=== PATIENT | female | born 1965 | race Caucasian/White ===

== ENCOUNTER 2024-05-15 10:30 | Outpatient (RCR) | payer BC, SELFPAY ==
--- NOTE | 2024-02-23 12:58 | OT.OPPOC ---
Physical, Occupational & Speech Therapy At [facility] Chandlertiffani gregoryJulio CAura Zahira [id number] 1965 Visit Care Team Role Provider Type Lesley Garner PA-C Attending Provider Non-Staff Referring Provider Address: [facility] [address], [place], [address] Occupational Therapy Plan of Care OT Outpatient Adult Evaluation Start: 02/23/24 12:16 Freq: Status: Active Protocol: Document 02/23/24 12:17 LISSA (Rec: 02/23/24 12:42 [email or web address] [id number]) General Information - Adult Visit Information Visit Number 1 Plan of Care Dates 02/23/24 - 05/03/24 Insurance Information [facility] Session Time Visit Start Date 02/23/24 Visit Start Time 11:15 Visit Stop Time 12:00 Setting Treatment Setting Outpatient Care Visit Type Note Type Initial Evaluation Referral Referring Physician Lesley Garner Reason for Referral sprain of interphalangeal joint of L middle finger Identification Identification Confirmed Yes Patient Questionnaires Quick Dash- Upper Extremity Quick Dash UE Score 22.72 Quick Dash UE Impairment 20 to 39% Impaired (Score 20- 39) Goals Objective Measurements Objective Measurements L 3rd digit: MP ext +10 A, MP flex 80 A (90P), PIP ext - 28 A (-20P), PIP flex 78 A (86P), DIP ext +3 A, DIP flex 54 A ( 54P) circumfrential measurement: distal to MP L 3rd digit 6.5cm , 1/[address] way between MP and PIP 6 .9cm, PIP 7 cm, 1/2 way between PIP and DIP 6cm data management engineer strength: R 72#, L 41# Treatment Treatment retrograde massage performed to thrid digits for edema mgmt followed by placement of coban wrap. Assisted Goals Sheet Turner Goals 1. Pt will tolerate PROM L 3rd digit to WFL for flexion and extension for improved functional use. 2. Pt will demonstrate improved MP extension of at least -5 or better for improved functional use. 3. Pt will increase functional data management engineer by at least 10#. 4. Pt will be I with edema reduction technqiue HEP. 5. Pt will report no pain in L hand on waking. Assessment/Plan Assessment Patient Response Good Rehabilitation Potential Good Impairments Identified Body Mechanics,Flexibility, Functional Activities,Motor Function,Pain,Weakness,Range of Motion,Recreational Activities,Meaningful Activities,Stiffness,Swelling Treatment Assessment Pt referred to skilled OT services to address sprain of interphalangeal joint of L middle finger. Pt reports the injuring occured in mid-November. ? I was walking my dog and I bent down to pick something up . I was loosely holding the leash and she ran after another dog. The leash wrapped around my finger and she pulled.? ?It does hurt, but it ?s more of a huge inconvenience?. Pt reports pain at its worse at 3/10. Pt reports the most pain when she wakes up in the morning and she stretches opening her hand. She also has pain when she bumps it. Pt reports that pain is occasionally a burning pain. She is taking Aleve 2x/day for approximately 2 weeks. Pt denies any significant Pmhx . 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 She reports that he L hand does not limit any of the work she performs. However, when working with her dog, pt complains that her hand gets stuck in the treat bag. She also enjoys gardening and reports that she has continued to perform gardening tasks. She reports an increase in her swelling when she removes her gardening gloves verses when she initially donned them. Pt is R hand dominant. See objective section of eval for measurements. Pt with mild complaints of tenderness on palpation around her PIP joint . Pt report that the level of tenderness varies. OT notes that pt keeps left hand in stiff guarded position and does not use it unless asked. Pt will benefit from skilled OT services for improved functional use of L hand including improved ROM, strength, dexterity and reduction of edema. Pt will benefit from education on edema mgmt. Home Exercise Program pt issued HEP to include contrast bath, retrograde massage, and PROM PIP Reviewed with Patient Home Exercise Program Patient Understanding Excellent Plan Length of treatment (weeks) 10 Plan of Care Start Date 02/23/24 Plan of Care End Date 05/03/24 Comment 1-2x/wk Treatment Duration 45 Minutes Therapeutic Contents Client Education,Functional Activities,Home Exercise Program,Joint Protection, Manual Therapy,Education, Neuromuscular Re-Education, Self-Care,Stretching/ Flexibility Activities, Therapeutic Activities, Therapeutic Exercises, Modalities Modalities As Needed Types of Modalities Cyrotherapy Additional Types of Modalities PB/MHP/CP Patient Instruction Home Exercise Program,Plan of Care,Questions/Concerns Functional Wrist/Hand Scan Hand Side Sensory Assessment Sensory Profile2 Electronically Signed by: Veronika Sauer OT 02/23/24 [id number] If you are in agreement with this Plan of Care, please return a signed and dated copy. I have reviewed this Plan of Care and certify that the skilled therapy services above are required to meet the patient?s needs. Physician Signature Date Printed Name and Credentials Clinical Instructor Signature Printed Name and Credentials
--- NOTE | 2024-02-28 12:28 | OT.OP.TRT ---
Visit Care Team Role Provider Type Lesley Garner PA-C Attending Provider Non-Staff Referring Provider Specialty: Medical Address: [facility] [address], [place], [address] Email: Occupational Therapy Treatment Note OT Outpatient Treatment Note - Adult Start: 02/23/24 12:16 Freq: Status: Active Protocol: Document 02/28/24 10:30 LISSA (Rec: 02/28/24 09:28 LISSA [id number]) OT Outpatient Adult Treatment Note Session Time Visit Start Date 02/28/24 Visit Start Time 10:30 Visit Stop Time 11:15 Visit Information Visit Number Plan of Care Dates 02/23/24 - 05/03/24 [facility] Setting Treatment Setting Outpatient Care Visit Type Note Type Treatment Note - Subjective Identification Type Name Identification Reconciled With Medical Record Chief Complaint(s) Loss of Motion/Stiffness - Objective Objective Measurements Pt reports that she tried the coban wrap with activity, but says she has stopped doing it because her finger feels to stiff following. I feel like the swelling is a little better. Pt reports she has been performing contrast bath I feel like it is helping Pt denies pain during treatment session. After tx pt states I feel like it is moving so much more than before! Leach Cell Operator Goals 1. Pt will tolerate PROM L 3rd digit to WFL for flexion and extension for improved functional use. 2. Pt will demonstrate improved MP extension of at least -5 or better for improved functional use. 3. Pt will increase functional bartenders by at least 10#. 4. Pt will be I with edema reduction technqiue HEP. 5. Pt will report no pain in L hand on waking. - Treatment 2 Descriptor PROM: L 3rd digit MP/PIP/DIP flexion and extension to tolerance as well as composite flexion, extended holds as tolerated 1 Descriptor PB to L hand for 10 minutes to increase extensibility prior to manual therapy and PROM Exercises 1 Descriptor AROM L digits (flexion, ext, abd, add) with elbow on table and hand elevated Manual Therapy Manual Therapy soft tissue and fascial mobilization 3rd PIP including circumferential mobilization. joint mobilization grade III oscillation for PIP flexion and extension retrograde massage L 3rd digit and palm - Assessment Patient Response to Treatment Good Rehabilitation Potential Good Impairments Identified Body Mechanics,Flexibility, Pain,Weakness,Range of Motion, Recreational Activities, Meaningful Activities, Stiffness,Swelling Progress Towards Goals Excellent Progress Assessment of Overall Progress Improving Assessment of Improvement Pt tolerated tx well. OT educated pt on performing soft tissue and fascial mobilization as part of her HEP. Pt verbalizes understanding. OT re-educated pt on purpose of retrograde massage (pt stated she did not think it was helping) and performed for pt. Pt verbalizes understanding of this as well. Pt tolerated joint mobilization and PROM well. Pt with decreased guarding postures following treatment session. Continue skilled OT services per established POC. Reviewed with Patient/Caregiver Goals,Progress Being Made,Home Exercise Program Patient/Caregiver Understanding Excellent - Plan Therapy Recommendations Continue with Current Program Amount of Therapy Recommended 2-3 Months Comment 1-2x/wk Therapeutic Contents Active Range of Motion,Client Education,Functional Activities,Home Exercise Program,Joint Protection, Manual Therapy,Education, Neuromuscular Re-Education, Self-Care,Stretching/ Flexibility Activities, Therapeutic Activities, Therapeutic Exercises, Modalities Modalities As Needed Types of Modalities Contrast Bath,Cyrotherapy Additional Types of Modalities PB/MHP/CP
--- NOTE | 2024-03-01 12:12 | OT.OP.TRT ---
Visit Care Team Role Provider Type Lesley Garner PA-C Attending Provider Non-Staff Referring Provider Specialty: Medical Address: [facility] [address], [place], [address] Email: Occupational Therapy Treatment Note OT Outpatient Treatment Note - Adult Start: 02/23/24 12:16 Freq: Status: Active Protocol: Document 03/01/24 11:18 LISSA (Rec: 03/01/24 10:10 LISSA [id number]) OT Outpatient Adult Treatment Note Session Time Visit Start Date 03/01/24 Visit Start Time 11:18 Visit Stop Time 12:00 Visit Information Visit Number Plan of Care Dates 02/23/24 - 05/03/24 [facility] Setting Outpatient Care Visit Type Note Type Treatment Note - Subjective Identification Type Name Identification Reconciled With Medical Record Chief Complaint(s) Loss of Motion/Stiffness - Objective Objective Measurements Pt reports My hand is a little more stiff today. Usually it spends some time in hot water in the morning. Pt reports Last night when I took my dog for a walk, I got out of the car and was just super aware of my hand. Pt did not do the contrast bath yesterday. Business Area Director Goals 1. Pt will tolerate PROM L 3rd digit to WFL for flexion and extension for improved functional use. 2. Pt will demonstrate improved MP extension of at least -5 or better for improved functional use. 3. Pt will increase functional installation tech by at least 10#. 4. Pt will be I with edema reduction technique HEP. 5. Pt will report no pain in L hand on waking. - Treatment 2 Descriptor PROM: L 3rd digit MP/PIP/DIP flexion and extension to tolerance as well as composite flexion, extended holds as tolerated 1 Descriptor PB to L hand for 10 minutes to increase extensibility prior to manual therapy and PROM Exercises 2 Descriptor tendon glide x15 1 Descriptor AROM L digits (flexion, ext, abd, add) with elbow on table and hand elevated Manual Therapy Manual Therapy soft tissue and fascial mobilization 3rd PIP including circumfrential mobilization. joint mobilization grade III oscillation for PIP flexion and extension retrograde massage L 3rd digit and palm - Assessment Patient Response to Treatment Good Rehabilitation Potential Good Impairments Identified Body Mechanics,Flexibility, Pain,Weakness,Range of Motion, Recreational Activities, Meaningful Activities, Stiffness,Swelling Progress Towards Goals Excellent Progress Assessment of Overall Progress Improving Assessment of Improvement Pt tolerated tx well. Pt has not performed her HEP since last tx due to being busy with family member. OT emphasizes importance of each of the exercises on HEP. Pt verbalizes understanding. Pt requires min vcs to perform tendon glide correctly. Pt tolerates near functional limits for 3rd digift flexion and extension by OT. Continue skilled OT services per established POC. Reviewed with Patient/Caregiver Goals,Progress Being Made,Home Exercise Program Patient/Caregiver Understanding Excellent - Plan Therapy Recommendations Continue with Current Program Amount of Therapy Recommended 2-3 Months Comment 1-2x/wk Therapeutic Contents Active Range of Motion,Client Education,Functional Activities,Home Exercise Program,Joint Protection, Manual Therapy,Education, Neuromuscular Re-Education, Self-Care,Stretching/ Flexibility Activities, Therapeutic Activities, Therapeutic Exercises, Modalities Modalities As Needed Types of Modalities Contrast Bath,Cyrotherapy Additional Types of Modalities PB/MHP/CP
--- NOTE | 2024-03-06 08:17 | OT.OP.TRT ---
Visit Care Team Role Provider Type Lesley Garner PA-C Attending Provider Non-Staff Referring Provider Specialty: Medical Address: [facility] [address], [place], [address] Email: Occupational Therapy Treatment Note OT Outpatient Treatment Note - Adult Start: 02/23/24 12:16 Freq: Status: Active Protocol: Document 03/06/24 07:31 LISSA (Rec: 03/06/24 07:29 LISSA [id number]) OT Outpatient Adult Treatment Note Session Time Visit Start Date 03/06/24 Visit Start Time 07:31 Visit Stop Time 08:15 Visit Information Visit Number Plan of Care Dates 02/23/24 - 05/03/24 [facility] Outpatient Care Visit Type Note Type Treatment Note - Subjective Identification Type Name Identification Reconciled With Medical Record Observations My hand has been more stiff lately, especially first thing in the morning I have been keeping my hand above my heart and moving my hand. I'm still doing the contrast bath and some massage. After therapy pt states It feels better than it did when I woke up Chief Complaint(s) Loss of Motion/Stiffness - Objective Tube Drawer Goals 1. Pt will tolerate PROM L 3rd digit to WFL for flexion and extension for improved functional use. 2. Pt will demonstrate improved MP extension of at least -5 or better for improved functional use. 3. Pt will increase functional child protection specialist by at least 10#. 4. Pt will be I with edema reduction technqiue HEP. MET 03/06/24 5. Pt will report no pain in L hand on waking. - Treatment 2 Descriptor PROM: L 3rd digit MP/PIP/DIP flexion and extension to tolerance as well as composite flexion, extended holds as tolerated 1 Descriptor PB to L hand for 10 minutes to increase extensibility prior to manual therapy and PROM Exercises 4 Descriptor Isometric PIP ext x10 3 Descriptor towel: index finger flexion for towel gather and extension for flattening towel x 10 2 Descriptor tendon glide x15 1 Descriptor AROM L digits (flexion, ext, abd, add) with elbow on table and hand elevated Isolated PIP flexion and extension x20 Manual Therapy Manual Therapy soft tissue and fascial mobilization 3rd PIP including circumfrential mobilization. joint mobilization grade III oscilation for PIP flexion and extension retrograde massage L 3rd digit and palm - Assessment Patient Response to Treatment Good Rehabilitation Potential Good Impairments Identified Body Mechanics,Flexibility, Pain,Weakness,Range of Motion, Recreational Activities, Meaningful Activities, Stiffness,Swelling Progress Towards Goals Excellent Progress Assessment of Overall Progress Improving Assessment of Improvement OT recommends pt wearing a compression glove especially at night but also during day as tolerated to assist with swelling. Pt tolerated tx well. Pt reports that she has been performing her HEP. Pt continues to require min vcs to perform tendon glide correctly. Pt tolerates near fucntional limits for 3rd digift flexion and extension by OT. Pt hs met goal #4. Continue skilled OT services per established POC. Reviewed with Patient/Caregiver Goals,Progress Being Made,Home Exercise Program Patient/Caregiver Understanding Excellent - Plan Therapy Recommendations Continue with Current Program Amount of Therapy Recommended 2-3 Months Comment 1-2x/wk Therapeutic Contents Active Range of Motion,Client Education,Functional Activities,Home Exercise Program,Joint Protection, Manual Therapy,Education, Neuromuscular Re-Education, Self-Care,Stretching/ Flexibility Activities, Therapeutic Activities, Therapeutic Exercises, Modalities Modalities As Needed Types of Modalities Contrast Bath,Cyrotherapy Additional Types of Modalities PB/MHP/CP
--- NOTE | 2024-03-13 12:27 | OT.OP.TRT ---
Visit Care Team Role Provider Type Lesley Garner PA-C Attending Provider Non-Staff Referring Provider Specialty: Medical Address: [facility] [address], [place], [address] Email: Occupational Therapy Treatment Note OT Outpatient Treatment Note - Adult Start: 02/23/24 12:16 Freq: Status: Active Protocol: Document 03/13/24 10:35 LISSA (Rec: 03/13/24 10:29 LISSA [id number]) OT Outpatient Adult Treatment Note Session Time Visit Start Date 03/13/24 Visit Start Time 10:35 Visit Stop Time 11:15 Visit Information Visit Number Plan of Care Dates 02/23/24 - 05/03/24 Insurance Information [facility] Setting Treatment Setting Outpatient Care Visit Type Note Type Treatment Note - Subjective Identification Type Name Identification Reconciled With Medical Record Observations Pt has had a lot of things going on at home. Pt reports that she has been doing the exercises at home I think they are helping. Pt reports she bought a compression glove and it has been helping with the stiffness, but I don 't feel like it's helping with the stiffness. Pt is wearing her compression glove at night. Pt continues to c/o pain on waking. Chief Complaint(s) Loss of Motion/Stiffness - Objective Objective Measurements L 3rd digit:PIP ext - 10A, PIP flex 84 A, DIP ext +3 A, circumfrential measurement: distal to MP L 3rd digit 6.3cm , 1/2 way between MP and PIP 6 .6cm, PIP 6.8 cm, 1/2 way between PIP and DIP 5.7 cm Jail Goals 1. Pt will tolerate PROM L 3rd digit to WFL for flexion and extension for improved functional use. MET 03/13/24 2. Pt will demonstrate improved MP extension of at least -5 or better for improved functional use. 3. Pt will increase functional brick chimney builder by at least 10#. 4. Pt will be I with edema reduction technqiue HEP. MET 03/06/24 5. Pt will report no pain in L hand on waking. - Treatment 2 Descriptor PROM: L 3rd digit MP/PIP/DIP flexion and extension to tolerance as well as composite flexion, extended holds as tolerated 1 Descriptor PB to L hand for 10 minutes to increase extensibility prior to manual therapy and PROM Exercises 5 Descriptor resistive digit clinical quality rn: green x15 4 Descriptor Digit blocking: PIP and DIP flexion and extension with 3 second holds at end range x10 each 3 Descriptor towel: index finger flexion for towel gather and extension for flattening towel x 15 2 Descriptor tendon glide x15 1 Descriptor AROM L digits (flexion, ext, abd, add) with elbow on table and hand elevated Isolated PIP flexion and extension x20 Manual Therapy Manual Therapy soft tissue and fascial mobilization 3rd PIP including circumfrential mobilization. joint mobilization grade III oscilation for PIP flexion and extension retrograde massage L 3rd digit and palm - Assessment Patient Response to Treatment Good Rehabilitation Potential Good Impairments Identified Body Mechanics,Flexibility, Pain,Weakness,Range of Motion, Recreational Activities, Meaningful Activities, Stiffness,Swelling Progress Towards Goals Excellent Progress Assessment of Overall Progress Improving Assessment of Improvement Pt demonstrates decreased edema and increased AROM. See notes above for specific measurements. Pt was issued tendon glides to add into her HEP routine. Pt demonstrates them with min vcs. Pt has met goal #1 and makes progress toward #2. Pt tolerated addition of increased exercises well. Pt needs occasional rbs due to complaints of being tired. Continue skilled OT services per established POC. Reviewed with Patient/Caregiver Goals,Progress Being Made,Home Exercise Program Patient/Caregiver Understanding Excellent - Plan Therapy Recommendations Continue with Current Program Amount of Therapy Recommended 2-3 Months Comment 1-2x/wk Therapeutic Contents Active Range of Motion,Client Education,Functional Activities,Home Exercise Program,Joint Protection, Manual Therapy,Education, Neuromuscular Re-Education, Self-Care,Stretching/ Flexibility Activities, Therapeutic Activities, Therapeutic Exercises, Modalities Modalities As Needed Types of Modalities Contrast Bath,Cyrotherapy Additional Types of Modalities PB/MHP/CP
--- NOTE | 2024-04-21 09:49 | OT.OP.TRT ---
Visit Care Team Role Provider Type Lesley Garner PA-C Attending Provider Non-Staff Referring Provider Specialty: Medical Address: [facility] [address], [place], [address] Email: Occupational Therapy Treatment Note OT Outpatient Treatment Note - Adult Start: 02/23/24 12:16 Freq: Status: Active Protocol: Document 04/21/24 09:06 LISSA (Rec: 04/21/24 09:14 LISSA [id number]) OT Outpatient Adult Treatment Note Session Time Visit Start Date 04/21/24 Visit Start Time 09:00 Visit Stop Time 09:45 Visit Information Visit Number Plan of Care Dates 02/23/24 - 05/03/24 Insurance Information [facility] Setting Treatment Setting Outpatient Care Visit Type Note Type Treatment Note - Subjective Identification Type Name Identification Reconciled With Medical Record Observations Sometimes it's super tender, I hit it on the side of the car and it about brought tears to my eyes. Pt reports wearing compression glove every other night. Pt reports Getting it in warm wet water is when it feels the best. It still feels really tight when I want to make a fist. Pt has been driving more lately (8 hours plus) and reports her L 3rd digit becomes very stiff. Pt reports that she her hand is stiff when she wakes and on the verge of painful. Chief Complaint(s) Loss of Motion/Stiffness - Objective Objective Measurements L 3rd digit:PIP ext - 10A (-5P ), PIP flex 89 A, DIP ext +3 A , circumfrential measurement: distal to MP L 3rd digit 6.5 cm, 1/2 way between MP and PIP 6.6cm, PIP 7 cm, 1/2 way between PIP and DIP 5.7 cm Group Home Goals 1. Pt will tolerate PROM L 3rd digit to WFL for flexion and extension for improved functional use. MET 03/13/24 2. Pt will demonstrate improved MP extension of at least -5 or better for improved functional use. 3. Pt will increase functional table keeper by at least 10#. 4. Pt will be I with edema reduction technqiue HEP. MET 03/06/24 5. Pt will report no pain in L hand on waking. - Treatment 2 Descriptor PROM: L 3rd digit MP/PIP/DIP flexion and extension to tolerance as well as composite flexion, extended holds as tolerated Exercises 4 Descriptor Digit blocking: PIP and DIP flexion and extension with 3 second holds at end range x10 each 3 Descriptor towel: index finger flexion for towel gather and extension for flattening towel x 2 minutes 2 Descriptor tendon glide x15 Manual Therapy Manual Therapy soft tissue and fascial mobilization 3rd PIP including circumfrential mobilization. joint mobilization grade III oscilation for PIP flexion and extension - Assessment Patient Response to Treatment Good Rehabilitation Potential Good Impairments Identified Body Mechanics,Flexibility, Pain,Weakness,Range of Motion, Recreational Activities, Meaningful Activities, Stiffness,Swelling Progress Towards Goals Excellent Progress Assessment of Overall Progress Improving Assessment of Improvement Pt last treated on 03/13 due to medical concerns of therapist . Pt's measurements are documented above in objective section. Pt demonstrates some improvement in PIP flexion. Pt tolerates PROM and joint mobilization well. Pt reports feeling stiff at end of tx but denies any pain. Pt will continue to benefit from skilled OT services to address ROM, strength, and funcitonal use of L hand. Cont per established POC. Reviewed with Patient/Caregiver Goals,Progress Being Made,Home Exercise Program Patient/Caregiver Understanding Excellent - Plan Therapy Recommendations Continue with Current Program Amount of Therapy Recommended 2-3 Months Comment 1-2x/wk Therapeutic Contents Active Range of Motion,Client Education,Functional Activities,Home Exercise Program,Joint Protection, Manual Therapy,Education, Neuromuscular Re-Education, Self-Care,Stretching/ Flexibility Activities, Therapeutic Activities, Therapeutic Exercises, Modalities Modalities As Needed Types of Modalities Contrast Bath,Cyrotherapy Additional Types of Modalities PB/MHP/CP
--- NOTE | 2024-04-24 10:51 | OT.OP.TRT ---
Visit Care Team Role Provider Type Lesley Garner PA-C Attending Provider Non-Staff Referring Provider Specialty: Medical Address: [facility] [address], [place], [address] Email: Occupational Therapy Treatment Note OT Outpatient Treatment Note - Adult Start: 02/23/24 12:16 Freq: Status: Active Protocol: Document 04/24/24 08:18 LISSA (Rec: 04/24/24 08:22 LISSA [id number]) OT Outpatient Adult Treatment Note Session Time Visit Start Date 04/24/24 Visit Start Time 08:18 Visit Stop Time 09:00 Visit Information Visit Number Plan of Care Dates 02/23/24 - 05/03/24 Insurance Information [employer] Setting Treatment Setting Outpatient Care Visit Type Note Type Treatment Note - Subjective Identification Type Name Identification Reconciled With Medical Record Observations It's about the same. Pt reports her finger was stiff when she woke this morning and that driving to therapy made her finger feel more stiff. I think my biggest issue with it right now is that it is clumsy and in the way. It feels like it should be useful , but it's just in the way. After tx pt states It feels so much better. It's not even stiff! It's tired but it's not stiff! Chief Complaint(s) Loss of Motion/Stiffness - Objective Property Master Goals 1. Pt will tolerate PROM L 3rd digit to WFL for flexion and extension for improved functional use. MET 03/13/24 2. Pt will demonstrate improved MP extension of at least -5 or better for improved functional use. 3. Pt will increase functional manager electronic by at least 10#. 4. Pt will be I with edema reduction technqiue HEP. MET 03/06/24 5. Pt will report no pain in L hand on waking. - Treatment 2 Descriptor PROM: L 3rd digit MP/PIP/DIP flexion and extension to tolerance as well as composite flexion, extended holds as tolerated Exercises 6 Descriptor blue foam full fist followed by full extension x 20 5 Descriptor resistive digit sectionizer: green 10x2 4 Descriptor Digit blocking: PIP and DIP flexion and extension with 3 second holds at end range x15 each 3 Descriptor towel: index finger flexion for towel gather and extension for flattening towel x 2 minutes 2 Descriptor tendon glide x15 Manual Therapy Manual Therapy joint mobilization grade III oscilation for PIP flexion and extension - Assessment Patient Response to Treatment Good Rehabilitation Potential Good Impairments Identified Body Mechanics,Flexibility, Pain,Weakness,Range of Motion, Recreational Activities, Meaningful Activities, Stiffness,Swelling Progress Towards Goals Excellent Progress Assessment of Overall Progress Improving Assessment of Improvement OT added composite fisting with blue foam today due to pts c/o middle finger being in the way. OT issued for home use to encourage fingers to work as a functional unit. Pt requires intermittent rbs due to muscle fatigue with strengthening exercises. OT encourages pt to hold stretches for longer when performing at home. Pt tolerated tx well and reported having no stiffness at the end of her tx. Pt tolerated increased holds with PROM today. Cont per established POC. Reviewed with Patient/Caregiver Goals,Progress Being Made,Home Exercise Program Patient/Caregiver Understanding Excellent - Plan Therapy Recommendations Continue with Current Program Amount of Therapy Recommended 2-3 Months Comment 1-2x/wk Therapeutic Contents Active Range of Motion,Client Education,Functional Activities,Home Exercise Program,Joint Protection, Manual Therapy,Education, Neuromuscular Re-Education, Self-Care,Stretching/ Flexibility Activities, Therapeutic Activities, Therapeutic Exercises, Modalities Modalities As Needed Types of Modalities Contrast Bath,Cyrotherapy Additional Types of Modalities PB/MHP/CP
--- NOTE | 2024-05-01 12:47 | OT.OP.TRT ---
Visit Care Team Role Provider Type Lesley Garner PA-C Attending Provider Non-Staff Referring Provider Specialty: Medical Address: [facility] [address], [place], [address] Email: Occupational Therapy Treatment Note OT Outpatient Treatment Note - Adult Start: 02/23/24 12:16 Freq: Status: Active Protocol: Document 05/01/24 10:33 ZARIAPATSYSTEPHANIEDEDRA (Rec: 05/01/24 10:57 ZARIAPATSYENOCH [id number]) OT Outpatient Adult Treatment Note Session Time Visit Start Date 05/01/24 Visit Start Time 10:33 Visit Stop Time 11:15 Visit Information Visit Number Plan of Care Dates 02/23/24 - 05/03/24 [facility] Treatment Setting Outpatient Care Visit Type Note Type Treatment Note - Subjective Identification Type Name Identification Reconciled With Medical Record Observations Pt reports that she saw her referring MD and that she is being referred to another specialist for a second opinion. Pt report that she's been really working it more and it's been getting really stiff. Pt reports when she woke this morning she had stiffness but no pain. At end of tx, pt reports it's a little bit painful on the top of both knuckles. Other than that it feels a little sore from stretching. Chief Complaint(s) Loss of Motion/Stiffness - Objective Cocoa Butter Filter Operator Goals 1. Pt will tolerate PROM L 3rd digit to WFL for flexion and extension for improved functional use. MET 03/13/24 2. Pt will demonstrate improved MP extension of at least -5 or better for improved functional use. 3. Pt will increase functional cable testers helper by at least 10#. 4. Pt will be I with edema reduction technqiue HEP. MET 03/06/24 5. Pt will report no pain in L hand on waking. MET 05/01/24 - Treatment 2 Descriptor PROM: L 3rd digit MP/PIP/DIP flexion and extension to tolerance as well as composite flexion, extended holds as tolerated Exercises 7 Descriptor prayer hand stretch to tolerance 6 Descriptor blue foam full fist followed by full extension x 20 5 Descriptor resistive digit lumber kiln operator: green 15x2 4 Descriptor Digit blocking: PIP and DIP flexion and extension with 3 second holds at end range 10x2 each 3 Descriptor towel: index finger flexion for towel gather and extension for flattening towel x 2 minutes 2 Descriptor tendon glide x15 Manual Therapy Manual Therapy joint mobilization grade III oscilation for PIP flexion and extension - Assessment Patient Response to Treatment Good Rehabilitation Potential Good Impairments Identified Body Mechanics,Flexibility, Pain,Weakness,Range of Motion, Recreational Activities, Meaningful Activities, Stiffness,Swelling Progress Towards Goals Excellent Progress Assessment of Overall Progress Improving Assessment of Improvement Pt tolerated tx well overall. Pt reports feeling tired and sore following stretching and strengthening activities. OT assures pt that this is to be expected with treatment provided. Pt has met LTG #5 today. Pt demonstrates blue foam exercises correctly, OT will have pt use this exclusively as part of her HEP moving forward. OT educated pt on another stretching technique today with the prayer hands. The goal is that pt will have a stretch that she can comfortable and consistently perform. Pt reports she has been more regular with her stretching since last treatment. Cont per established POC. Reviewed with Patient/Caregiver Goals,Progress Being Made,Home Exercise Program Patient/Caregiver Understanding Excellent - Plan Therapy Recommendations Continue with Current Program Amount of Therapy Recommended 2-3 Months Comment 1-2x/wk Therapeutic Contents Active Range of Motion,Client Education,Functional Activities,Home Exercise Program,Joint Protection, Manual Therapy,Education, Neuromuscular Re-Education, Self-Care,Stretching/ Flexibility Activities, Therapeutic Activities, Therapeutic Exercises, Modalities Modalities As Needed Types of Modalities Contrast Bath,Cyrotherapy Additional Types of Modalities PB/MHP/CP
--- NOTE | 2024-05-08 12:46 | OT.OP.TRT ---
Visit Care Team Role Provider Type Lesley Garner PA-C Attending Provider Non-Staff Referring Provider Specialty: Medical Address: [facility] [address], [place], [address] Email: Occupational Therapy Treatment Note OT Outpatient Treatment Note - Adult Start: 02/23/24 12:16 Freq: Status: Active Protocol: Document 05/08/24 10:33 LISSA (Rec: 05/08/24 11:18 LISSA [id number]) OT Outpatient Adult Treatment Note Session Time Visit Start Date 05/08/24 Visit Start Time 10:35 Visit Stop Time 11:10 Visit Information Visit Number Insurance Information [facility] Setting Treatment Setting Outpatient Care Visit Type Note Type Treatment Note - Subjective Identification Type Name Identification Reconciled With Medical Record Observations I'm feeling lately a little bit of pain on top (pointing at PIP). Pt reports pain at times at 5/10 with outside chores especially raking into a large dust mercer. Pt reports it is a sharp feeling and goes away immediately. Pt reports no significant change to her stretching or strengthening routine. Chief Complaint(s) Loss of Motion/Stiffness - Objective Snf Goals 1. Pt will tolerate PROM L 3rd digit to WFL for flexion and extension for improved functional use. MET 03/13/24 2. Pt will demonstrate improved MP extension of at least -5 or better for improved functional use. 3. Pt will increase functional vice president of talent acquisition by at least 10#. 4. Pt will be I with edema reduction technqiue HEP. MET 03/06/24 5. Pt will report no pain in L hand on waking. MET 05/01/24 - Treatment 2 Descriptor PROM: L 3rd digit MP/PIP/DIP flexion and extension to tolerance as well as composite flexion, extended holds as tolerated Exercises 7 Descriptor prayer hand stretch to tolerance rhythmic wrist extenser stretch 6 Descriptor green digi flex x20 5 Descriptor resistive digit tow picker: blue 15x2 4 Descriptor Digit blocking: PIP and DIP flexion and extension with 3 second holds at end range 10x2 each 3 Descriptor towel: index finger flexion for towel gather and extension for flattening towel x 2 minutes Manual Therapy Manual Therapy joint mobilization grade III oscilation for PIP flexion and extension - Assessment Patient Response to Treatment Good Rehabilitation Potential Good Impairments Identified Body Mechanics,Flexibility, Pain,Weakness,Range of Motion, Recreational Activities, Meaningful Activities, Stiffness,Swelling Progress Towards Goals Excellent Progress Assessment of Overall Progress Improving Assessment of Improvement Pt tolerated tx well. Pt reports no pain similar to what she experienced with house chores during today's session. Pt tolerated increased resistance with digit extension resister and with vice president of talent acquisition strengthening today. Cont per established POC. Reviewed with Patient/Caregiver Goals,Progress Being Made,Home Exercise Program Patient/Caregiver Understanding Excellent - Plan Therapy Recommendations Continue with Current Program Amount of Therapy Recommended 2-3 Months Comment 1-2x/wk Therapeutic Contents Active Range of Motion,Client Education,Functional Activities,Home Exercise Program,Joint Protection, Manual Therapy,Education, Neuromuscular Re-Education, Self-Care,Stretching/ Flexibility Activities, Therapeutic Activities, Therapeutic Exercises, Modalities Modalities As Needed Types of Modalities Contrast Bath,Cyrotherapy Additional Types of Modalities PB/MHP/CP
--- NOTE | 2024-05-15 13:01 | OT.OP.TRT ---
Visit Care Team Role Provider Type eLsley Garner PA-C Attending Provider Non-Staff Referring Provider Specialty: Medical Address: [facility] [address], [place], [address] Email: Occupational Therapy Treatment Note OT Outpatient Treatment Note - Adult Start: 02/23/24 12:16 Freq: Status: Active Protocol: Document 05/15/24 10:30 ZARIAFRACISCO (Rec: 05/15/24 10:40 ZARIAPATSYENOCH [id number]) OT Outpatient Adult Treatment Note Session Time Visit Start Date 05/15/24 Visit Start Time 10:30 Visit Stop Time 11:15 Visit Information Visit Number Insurance Information [facility] Setting Treatment Setting Outpatient Care - Subjective Identification Type Name Identification Reconciled With Medical Record Observations Pt went to a dog trial which she and her dog competed in this weekend. She reported having trouble with her dog's leash because of the rain. From a strength stand point I know I am not as strong. It is better than it was when I came in, but I feel like there is room for improvement. Chief Complaint(s) Loss of Motion/Stiffness - Objective Objective Measurements L 3rd digit: PIP ext -10; PIP flex 92; DIP flex 58 Circumferential measurement: L 3rd digit: distal to MP 6.4 cm, 1/2 way between MP and PIP 6.8 cm, PIP 6.8 cm, 1/[address] way between PIP and DIP 5.8 cm Hearing Aid Mechanic Strength: R 65#; L 50#, 50#, 47# (avg 49#) Production Control Supervisor Goals 1. Pt will tolerate PROM L 3rd digit to WFL for flexion and extension for improved functional use. MET 03/13/24 2. Pt will demonstrate improved MP extension of at least -5 or better for improved functional use. 3. Pt will increase functional finance lead by at least 10#. 4. Pt will be I with edema reduction technqiue HEP. MET 03/06/24 5. Pt will report no pain in L hand on waking. MET 05/01/24 - Treatment 2 Descriptor PROM: L 3rd digit MP/PIP/DIP flexion and extension to tolerance as well as composite flexion, extended holds as tolerated Exercises 7 Descriptor prayer hand stretch to tolerance rhythmic wrist extenser stretch 6 Descriptor green digi flex x20 5 Descriptor resistive digit lunch truck operator: blue 15x2 4 Descriptor Digit blocking: PIP and DIP flexion and extension with 3 second holds at end range 10x2 each 3 Descriptor towel: index finger flexion for towel gather and extension for flattening towel x 2 minutes Manual Therapy Manual Therapy joint mobilization grade III oscilation for PIP flexion and extension - Assessment Patient Response to Treatment Good Rehabilitation Potential Good Impairments Identified Body Mechanics,Flexibility, Pain,Weakness,Range of Motion, Recreational Activities, Meaningful Activities, Stiffness,Swelling Progress Towards Goals Good Progress Assessment of Overall Progress Improving Assessment of Improvement Pt tolerated tx well. Pt continues to deny pain when waking in the morning. She does report having general stiffness in the morning that improves with activity. Pt is I with HEP and reports confidence with performing stretching and exercises in hopes for continued improvements. Reviewed with Patient/Caregiver Goals,Progress Being Made,Home Exercise Program Patient/Caregiver Understanding Excellent - Plan Therapy Recommendations Discharge to Home Exercise Program
--- NOTE | 2024-05-15 13:02 | OT.OP.DC ---
Visit Care Team Role Provider Type Lesley Garner PA-C Attending Provider Non-Staff Referring Provider Address: [facility] [address], [place], [address] Email: OT Outpatient OT Outpatient Adult Evaluation Start: 02/23/24 12:16 Freq: Status: Active Protocol: Document 02/23/24 12:17 LISSA (Rec: 02/23/24 12:42 LISSA [id number]) General Information - Adult Visit Information Visit Number 1 Plan of Care Dates 02/23/24 - 05/03/24 Insurance Information [facility] Session Time Visit Start Date 02/23/24 Visit Start Time 11:15 Visit Stop Time 12:00 Setting Treatment Setting Outpatient Care Visit Type Note Type Initial Evaluation Referral Referring Physician Lesley Garner Reason for Referral sprain of interphalangeal joint of L middle finger Identification Identification Confirmed Yes Patient Questionnaires Quick Dash- Upper Extremity Quick Dash UE Score 22.72 Quick Dash UE Impairment 20 to 39% Impaired (Score 20- 39) Goals Objective Measurements Objective Measurements L 3rd digit: MP ext +10 A, MP flex 80 A (90P), PIP ext - 28 A (-20P), PIP flex 78 A (86P), DIP ext +3 A, DIP flex 54 A ( 54P) circumfrential measurement: distal to MP L 3rd digit 6.5cm , 1/[address] way between MP and PIP 6 .9cm, PIP 7 cm, 1/2 way between PIP and DIP 6cm rod hanger strength: R 72#, L 41# Treatment Treatment retrograde massage performed to thrid digits for edema mgmt followed by placement of coban wrap. Aviation Electrical Technician Goals Senior Care Goals 1. Pt will tolerate PROM L 3rd digit to WFL for flexion and extension for improved functional use. 2. Pt will demonstrate improved MP extension of at least -5 or better for improved functional use. 3. Pt will increase functional rod hanger by at least 10#. 4. Pt will be I with edema reduction technqiue HEP. 5. Pt will report no pain in L hand on waking. Assessment/Plan Assessment Patient Response Good Rehabilitation Potential Good Impairments Identified Body Mechanics,Flexibility, Functional Activities,Motor Function,Pain,Weakness,Range of Motion,Recreational Activities,Meaningful Activities,Stiffness,Swelling Treatment Assessment Pt referred to skilled OT services to address sprain of interphalangeal joint of L middle finger. Pt reports the injuring occured in mid-November. ? I was walking my dog and I bent down to pick something up . I was loosely holding the leash and she ran after another dog. The leash wrapped around my finger and she pulled.? ?It does hurt, but it ?s more of a huge inconvenience?. Pt reports pain at its worse at 3/10. Pt reports the most pain when she wakes up in the morning and she stretches opening her hand. She also has pain when she bumps it. Pt reports that pain is occasionally a burning pain. She is taking Aleve 2x/day for approximately 2 weeks. Pt denies any significant Pmhx . 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 She reports that he L hand does not limit any of the work she performs. However, when working with her dog, pt complains that her hand gets stuck in the treat bag. She also enjoys gardening and reports that she has continued to perform gardening tasks. She reports an increase in her swelling when she removes her gardening gloves verses when she initially donned them. Pt is R hand dominant. See objective section of eval for measurements. Pt with mild complaints of tenderness on palpation around her PIP joint . Pt report that the level of tenderness varies. OT notes that pt keeps left hand in stiff guarded position and does not use it unless asked. Pt will benefit from skilled OT services for improved functional use of L hand including improved ROM, strength, dexterity and reduction of edema. Pt will benefit from education on edema mgmt. Home Exercise Program pt issued HEP to include contrast bath, retrograde massage, and PROM PIP Reviewed with Patient Home Exercise Program Patient Understanding Excellent Plan Length of treatment (weeks) 10 Plan of Care Start Date 02/23/24 Plan of Care End Date 05/03/24 Comment 1-2x/wk Treatment Duration 45 Minutes Therapeutic Contents Client Education,Functional Activities,Home Exercise Program,Joint Protection, Manual Therapy,Education, Neuromuscular Re-Education, Self-Care,Stretching/ Flexibility Activities, Therapeutic Activities, Therapeutic Exercises, Modalities Modalities As Needed Types of Modalities Cyrotherapy Additional Types of Modalities PB/MHP/CP Patient Instruction Home Exercise Program,Plan of Care,Questions/Concerns Functional Wrist/Hand Scan Hand Side Sensory Assessment Sensory Profile2 OT Outpatient Treatment Note - Adult Start: 02/23/24 12:16 Freq: Status: Active Protocol: Document 05/15/24 10:30 LISSA (Rec: 05/15/24 10:40 LISSA [id number]) OT Outpatient Adult Discharge Note Session Time Visit Start Date 05/15/24 Visit Start Time 10:30 Visit Stop Time 11:15 Visit Information Visit Number Insurance Information [facility] Setting Treatment Setting Outpatient Care - Subjective Identification Type Name Identification Reconciled With Medical Record Observations Pt went to a dog trial which she and her dog competed in this weekend. She reported having trouble with her dog's leash because of the rain. From a strength stand point I know I am not as strong. It is better than it was when I came in, but I feel like there is room for improvement. Chief Complaint(s) Loss of Motion/Stiffness - Objective Objective Measurements L 3rd digit: PIP ext -10; PIP flex 92; DIP flex 58 Circumferential measurement: L 3rd digit: distal to MP 6.4 cm, 1/2 way between MP and PIP 6.8 cm, PIP 6.8 cm, 1/2 way between PIP and DIP 5.8 cm Pastry Assistant Strength: R 65#; L 50#, 50#, 47# (avg 49#) Senior Care Goals 1. Pt will tolerate PROM L 3rd digit to WFL for flexion and extension for improved functional use. MET 03/13/24 2. Pt will demonstrate improved MP extension of at least -5 or better for improved functional use. 3. Pt will increase functional rod hanger by at least 10#. 4. Pt will be I with edema reduction technqiue HEP. MET 03/06/24 5. Pt will report no pain in L hand on waking. MET 05/01/24 - - Assessment Patient Response to Treatment Good Rehabilitation Potential Good Impairments Identified Body Mechanics,Flexibility, Pain,Weakness,Range of Motion, Recreational Activities, Meaningful Activities, Stiffness,Swelling Progress Towards Goals Good Progress Assessment of Overall Progress Improving Assessment of Improvement Pt has been seen by skilled OT services to address decreased functional use of L 3rd digit . Pt has tolerated joint mobilization and PROM well. Despite this pt continues to lack 10 degrees from full extension. Pt has notable joint changes at 3rd PIP. Pt no longer has presence of edema at her 3rd digit. Pt has increased L rod hanger strength by 9#, almost meeting LTG #3. Pt has met sufficient goals for d/c to HEP. Pt verbalizes being ready to continue on her own. Reviewed with Patient/Caregiver Goals,Progress Being Made,Home Exercise Program Patient/Caregiver Understanding Excellent - Plan Therapy Recommendations Discharge to Home Exercise Program
== END 2024-05-17 14:35 | disposition home or self-care (01) ==
LOC: OT 10:30
PROVIDERS: Referring Provider Physician Assistant Surgical; Visit Provider Physician Assistant Surgical
DX: S63.633A Sprain of interphalangeal joint of left middle finger, initial encounter (principal)
CPT/HCPCS: 97018; 97110; 97140; 97165; 97530

== ENCOUNTER → 2024-09-21 10:31 | Outpatient (CLI) | payer BC, SELFPAY ==
--- NOTE | 2024-09-21 10:32 | DI.RAD.S_ITS ---
PROCEDURE: XR CHEST 2V INDICATIONS: Lingular pneumonia, persistent cough TECHNIQUE: 2 views of the chest were acquired. COMPARISON: None. FINDINGS: Heart, mediastinum and pulmonary vascular: Heart is normal in size and configuration. Mediastinum is unremarkable. Pulmonary vascular is normal. Lungs: A small infiltrate in the left infrahilar region appreciated. There is minor bibasilar atelectasis Pleural spaces: Normal-no effusions or pneumothorax. Bones and soft tissues: Normal IMPRESSION: Small infiltrate in the left infrahilar region. Dictated by: Bruno Pedro M.D. on 09/21/2024 at 12:13 Approved by: Bruno Pedro M.D. on 09/21/2024 at 12:14
== END ==
PROVIDERS: PCP Nurse Practitioner Family; Referring Provider Internal Medicine Critical Care Medicine; Visit Provider Internal Medicine Critical Care Medicine
DX: J18.9 Pneumonia, unspecified organism (principal)
CPT/HCPCS: 71046